=== PATIENT | male | born 1955 | race Caucasian/White ===

== ENCOUNTER 2019-10-20 11:19 | Day surgery (SDC) | payer OTHER, SELFPAY ==
[2019-10-20 11:23] VITALS: BP 168/91; PULSE 103; RESP 18; TEMP 36.7; O2SAT 100
[2019-10-20] MEDS: Bupivacaine 0.5% Pres-Free 30 ML VIAL ×2 (11:46→13:02)
[2019-10-20] MEDS: ceFAZolin 2 GM/50 ML BAG 100 GM (11:54)
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
[2019-10-20 12:22] VITALS: BP 136/74; PULSE 91; RESP 16; TEMP 37.3; O2SAT 99
[2019-10-20] MEDS: Lactated Ringers 1,000 ML 30 ML IV (14:03)
[2019-10-20] MEDS: levoFLOXacin 750 MG/150 ML BAG 100 MG IVPB (15:00)
[2019-10-20] MEDS: metroNIDAZOLE 500 MG/100 ML BAG 100 MG IVPB (15:00)
[2019-10-20] MEDS: Hydrogen Peroxide 3% 480 ML BTL (15:09)
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
--- NOTE | 2019-10-20 17:03 | NUR.NOTE ---
Nursing Note: Discharge instructions reviewed with pt. Prescriptions reviewed and directions given to pt as to how to get to the pharmacy for pickle sorter of medication. MD into see pt prior to discharge. There were no issues. Pt discharge home with friend
== END 2019-10-20 16:51 | disposition home or self-care (01) ==
LOC: ER 12:40 → SUR 12:53
PROVIDERS: Emergency Provider Physician Assistant; PCP Internal Medicine; Visit Provider Student in an Organized Health Care Education/Training Program
PROC: 0QBR0ZZ Excision of Left Toe Phalanx, Open Approach (ICD-10-PCS; CPT 28124; principal; 2019-10-20 12:30)
DX: S98.142A Partial traumatic amputation of one left lesser toe, initial encounter (principal); S91.115A Laceration without foreign body of left lesser toe(s) without damage to nail, initial encounter; W33.02XA Accidental discharge of hunting rifle, initial encounter; G89.18 Other acute postprocedural pain
CPT/HCPCS: 28124; 11044; 64400; 76942; 80053; 86900; 86901; 99223; 99285; 73630; 85025; 85610; 85730; 99284; J0690; J1885; J1956